=== PATIENT | female | born 1975 ===

== ENCOUNTER 2017-12-07 12:26 | Emergency (ER) | payer OTHER ==
[2017-12-07 12:32] VITALS: BP 114/60; PULSE 98; RESP 18; TEMP 97.6
[2017-12-07] MEDS ORDERED: DIAZEPAM 5 MG TAB PO STA (12:50)
[2017-12-07] MEDS ORDERED: IBUPROFEN 600 MG TAB PO STA (12:50)
--- NOTE | 2017-12-07 13:01 | ED ---
General Adult HPI - General Chief complaint: Back Pain/Injury Stated complaint: Back Pain Time Seen by Provider: 12/07/17 12:39 Source: patient, RN notes reviewed Mode of arrival: ambulatory Limitations: no limitations - History of Present Illness Initial comments: Patient is a 42-year-old female who presents emergency room today with a chief complaint of lower back pain over the last few weeks. She states it's gotten worse the last 2 days. She denies any injury or trauma. She states she has 4 younger children at home that she cares for. She states she told the family doctor went to physical therapy but it was for her upper back and upper lower back. She states her lower back is been what has been bothering her. She denies any saddle anesthesia. Denies any bowel or bladder incontinence retention. Denies any lumbar radiculopathy. Patient does admit that the symptoms are worse with movements. She's been trying Aleve with little relief. Patient denies any other complaints. Patient denies any recent fever, chills, shortness of breath, chest pain, abdominal pain, nausea or vomiting, dysuria or hematuria, constipation or diarrhea, headaches or visual changes, or any other complaints. - Related Data Home Medications Medication Instructions Recorded Confirmed Naproxen Sodium [Aleve] 440 mg PO DAILY PRN 12/07/17 12/07/17 Previous Rx's Medication Instructions Recorded Cyclobenzaprine [Flexeril] 10 mg PO TID #20 tab 12/07/17 Ibuprofen [Motrin] 600 mg PO Q6HR PRN #40 day 12/07/17 Allergies Allergy/AdvReac Type Severity Reaction Status Date / Time Sulfa (Sulfonamide Allergy Unknown Verified 12/07/17 12:40 Antibiotics) Review of Systems ROS Statement: Those systems with pertinent positive or pertinent negative responses have been documented in the HPI. ROS Other: All systems not noted in ROS Statement are negative. Past Medical History Past Medical History: No Reported History History of Any Multi-Drug Resistant Organisms: None Reported Past Surgical History: Section, Orthopedic Surgery Past Psychological History: No Psychological Hx Reported Smoking Status: Never smoker Past Alcohol Use History: Rare Past Drug Use History: None Reported General Exam - General Exam Comments Initial Comments: General: The patient is awake and alert, in no distress, and does not appear acutely ill. Eye: Pupils are equal, round and reactive to light, extra-ocular movements are intact. No nystagmus. There is normal conjunctiva bilaterally. No signs of icterus. Ears, nose, mouth and throat: There are moist mucous membranes and no oral lesions. Neck: The neck is supple, there is no tenderness or JVD. Cardiovascular: There is a regular rate and rhythm. No murmur, rub or gallop is appreciated. Respiratory: Lungs are clear to auscultation, respirations are non-labored, breath sounds are equal. No wheezes, stridor, rales, or rhonchi. Musculoskeletal: Normal ROM. Normal appearance of the cervical, thoracic or lumbar spine with normal step-offs or deformities. Patient no tenderness in the lower lumbar. Does have paravertebral tenderness both left and right sides. Pain reproduced with bending, turning and twisting. Strength 5/5. Sensation intact. Pulses equal bilaterally 2+. Neurological: A&O x 3. CN II-XII intact, There are no obvious motor or sensory deficits. Coordination appears grossly intact. Speech is normal. Skin: Skin is warm and dry and no rashes or lesions are noted. Psychiatric: Cooperative, appropriate mood & affect, normal judgment. Limitations: no limitations Course Vital Signs 12/07/17 12:29 Temperature 97.6 F Pulse Rate 98 Respiratory 18 Rate Blood Pressure 114/60 O2 Sat by Pulse 98 Oximetry Medical Decision Making - Medical Decision Making 42-year-old female presenting for lower back pain over the last several weeks. Worse the last 2 days. No injury no trauma. No bowel or bladder incontinence retention. No saddle anesthesia. No lumbar radiculopathy. Pain is reproduced with movements and on palpation to the lower back. No tenderness lumbar spine. Patient will be continued on anti-inflammatories for her lower back pain. She 'll be started on muscle relaxers. She been advised that it may make her drowsy. She is advised follow-up the family doctor over the next 2-5 days. Advised return here to the emergency room for any symptoms increase or worsen or for any other concerns. Disposition Clinical Impression: Acute low back pain Disposition: HOME SELF-CARE Condition: Good Instructions: Acute Low Back Pain (ED) Additional Instructions: Please use medication as discussed. Please follow-up with family doctor in the next 2 days of symptoms have not improved. Please return to emergency room if the symptoms increase or worsen or for any other concerns. Prescriptions: Cyclobenzaprine [Flexeril] 10 mg PO TID #20 tab Ibuprofen [Motrin] 600 mg PO Q6HR PRN #40 day PRN Reason: Pain Referrals: Sweta Munguia MD [Primary Care Provider] - 1-2 days Time of Disposition: 13:00
== END 2017-12-07 13:08 | disposition home or self-care (01) ==
LOC: EC 12:26
DX: M54.5 Low back pain (principal); Z88.2 Allergy status to sulfonamides
CPT/HCPCS: 99283